=== PATIENT | female | born 1975 | race Caucasian/White ===

== ENCOUNTER 2016-10-28 00:29 | Emergency (ER) | payer OTHER ==
--- NOTE | 2016-10-28 03:08 | EDPHY ---
H & P Stated Complaint: R calf "vein swelling", denies Hx of blood clots/recent travel HPI/ROS: HPI CHIEF COMPLAINT: Right leg cramp HISTORY OF PRESENT ILLNESS: This patient very pleasant 41-year-old female, denies any significant medical history does not take any daily medication, presents to the emergency room with right leg cramping. She states this started suddenly around 10:00 p.m.. She had pain behind her right knee and right calf. She took 2 ibuprofen and the pain resolved. She has had no recent travel, no chest pain or shortness of breath no pleuritic pain, no leg swelling no history DVT or PE. Not on control. Does not take any daily medications she became concerned decided come into the emergency room for evaluation for possible DVT. Past Medical History: No significant medical history Past Surgical History: no significant surgical history Social History: Denies use of drugs alcohol tobacco products Family History: Noncontributory ROS REVIEW OF SYSTEMS: A comprehensive 10 point review of systems is otherwise negative aside from elements mentioned in the history of present illness. Exam Constitutional triage nursing summary reviewed, vital signs reviewed, awake/ alert. BP noted slightly low however she tells me this is normal range for her. Eyes normal conjunctivae and sclera, EOMI, PERRLA. HENT normal inspection, atraumatic, moist mucus membranes, no epistaxis, neck supple/ no meningismus, no raccoon eyes. Respiratory clear to auscultation bilaterally, normal breath sounds, no respiratory distress, no wheezing. Cardiovascular rate normal, regular rhythm, no murmur, no edema, distal pulses normal. Gastrointestinal soft, non-tender, no rebound, no guarding, normal bowel sounds, no distension, no pulsatile mass. Genitourinary no CVA tenderness. Musculoskeletal no midline vertebral tenderness, full range of motion, no calf swelling, no tenderness of extremities, no meningismus, good pulses, neurovascularly intact. Right lower extremity: Neurovascularly intact good cap refill, good DP, no evidence of leg swelling, no tenderness palpation in the popliteal region or calf. Skin pink, warm, & dry, no rash, skin atraumatic. Neurologic awake, alert and oriented x 3, AAOx3, moves all 4 extremities equally, motor intact, sensory intact, CN II-XII intact, normal cerebellar, normal vision, normal speech. Psychiatric normal mood/affect. Heme/Lymph/Immune no lymphadenopathy. Differential Diagnosis: Includes but is not limited to in a particular order DVT, muscle spasm, muscle cramps, superficial phlebitis, Bermudez cyst Medical Decision Making: This patient appears well nontoxic plan for ultrasound right lower extremity to rule out DVT. Re-evaluation: Ultrasound of the RLE. The results of the study are Negative for DVT I discussed the results of this study with the radiologist Dr. Diego Torres [id number]: Re-evaluation at this time patient is resting comfortably no acute distress. No shortness of breath or chest pain. Ultrasound unremarkable for DVT however she understands return emergency room if develops worsening pain in her leg, swelling or questions or concerns. Her leg is neurovascular intact. She is comfortable discharge. Source: Patient - Personal History LMP (Females 10-55): Over 28 Days Ago Current Tetanus/Diphtheria Vaccine: Unsure Current Tetanus Diphtheria and Acellular Pertussis (TDAP): Unsure - Medical/Surgical History Hx Asthma: No Hx Chronic Respiratory Disease: No Hx Diabetes: No Hx Cardiac Disease: No Hx Renal Disease: No Hx Cirrhosis: No Hx Alcoholism: No Hx HIV/AIDS: No Hx Splenectomy or Spleen Trauma: No Other PMH: baseline hypotension. cyst removal - Social History Smoking Status: Never smoked Constitutional: Initial Vital Signs Temperature (C) 37.0 C 10/28/16 00:33 Heart Rate 70 10/28/16 00:33 Respiratory Rate 16 10/28/16 00:33 Blood Pressure 98/69 L 10/28/16 00:33 O2 Sat (%) 97 10/28/16 00:33 O2 Delivery Mode Room Air Allergies/Adverse Reactions: No Known Allergies Allergy (Unverified 10/28/16 00:33) Home Medications: Medication Instructions Recorded NK [No Known Home Meds] 10/28/16 Departure - Departure Disposition: Home, Routine, Self-Care Clinical Impression: Leg cramps Qualifiers: Laterality: right Qualified Code(s): R25.2 - Cramp and spasm Condition: Good Instructions: Muscle Cramp (ED) Additional Instructions: 1. return emergency room if he develops any worsening symptoms includes chest pain, shortness of breath, worsening leg pain or leg swelling. Referrals: NONE *PRIMARY CARE P,. [Primary Care Provider] - As per Instructions
[2016-10-28 04:40] VITALS: BP 96/55; PULSE 88; RESP 18; TEMP 98.1; O2SAT 94
== END 2016-10-28 04:38 | disposition home or self-care (01) ==
DX: R25.2 Cramp and spasm (principal)

== ENCOUNTER → 2017-06-22 | Outpatient (CLI) | payer OTHER | LOC: FIMAGING 08:31 | PROVIDERS: ATTEND Obstetrics & Gynecology | DX: Z12.31 Encounter for screening mammogram for malignant neoplasm of breast (principal) | CPT/HCPCS: G0202 ==

== ENCOUNTER → 2017-06-29 | Outpatient (CLI) | payer OTHER | LOC: FIMAGING 10:05 | PROVIDERS: ATTEND Obstetrics & Gynecology | DX: D25.1 Intramural leiomyoma of uterus (principal); D25.2 Subserosal leiomyoma of uterus ==

== ENCOUNTER 2018-02-03 18:22 | Emergency (ER) | payer OTHER | END 2018-02-03 18:52 | disposition left against medical advice (07) | DX: Z53.21 Procedure and treatment not carried out due to patient leaving prior to being seen by health care provider (principal) ==